=== PATIENT | female | born 1975 | race Caucasian/White ===

== ENCOUNTER 2023-09-13 15:10 | Outpatient (OUT) | payer MEDICAID, SELFPAY ==
--- NOTE | 2023-09-13 15:15 | XR_ITS ---
The [address] [address] Patient Name: SOLOMON CHAPARRO MRN: [id number] date: 1975 Sex: F Assigned Patient Location: RAD Current Patient Location: [facility] Accession/Order Number: [id number] Exam Date: 09/13/2023 15:20 Report Date: 09/13/2023 15:48 At the request of: NATIVIDAD SMITH Procedure: XR chest 2V EXAMINATION: XR chest 2V HISTORY: Pneumonia Due To COVID 19 COMPARISON: 01/15/2022 TECHNIQUE: PA and lateral FINDINGS: LUNGS: No significant pulmonary parenchymal abnormalities. VASCULATURE: No increased pulmonary vasculature. PLEURA: No pneumothorax, effusion, or pleural thickening. CARDIAC: No cardiomegaly or cardiac silhouette abnormality. MEDIASTINUM: No visible mass or adenopathy. BONES: No fracture or visible bone lesion. OTHER: Negative. XR/XR chest 2V IMPRESSION: No acute disease. Electronically authenticated by: SHANA CARROLL Date: 09/13/2023 15:48
== END 2023-09-13 15:11 | disposition home or self-care (01) ==
LOC: RAD 15:11
PROVIDERS: PCP Internal Medicine; Visit Provider Internal Medicine
DX: U07.1 COVID-19 (principal); J12.82 Pneumonia due to coronavirus disease 2019
CPT/HCPCS: 71046

== ENCOUNTER 2024-05-15 13:32 | Outpatient (OUT) | payer MEDICAID, SELFPAY ==
--- OUTSIDE RECORDS SUMMARY | 2024-05-15 13:53 | XMS_ITS | CCD ---
Author Organization [facility] Care Team Providers Care Radiology Physician Name Role Phone CHANELLE GAY Admitting Unavailable CHANELLE GAY Consulting Unavailable CHANELLE GAY Attending Unavailable SARAH, DR HENSON Primary Care Unavailable CHANELLE GAY Admitting Unavailable CHANELLE GAY Consulting Unavailable CHANELLE GAY Attending Unavailable SARAH, DR HENSON Primary Care Unavailable PAULO BELLE Attending Unavailable NADEGE, DR BUI Consulting Unavailable SARAH, DR HENSON Primary Care Unavailable PAULO BELLE Admitting Unavailable Shana Aleman Unavailable Eddie Mccord II Primary Care Provider [phone] Jazmine Pollack Unavailable Eddie Mccord II Primary Care Provider YAZMIN CUELLAR Referring UnavailEDDIE Hemphill II Primary Care Unavailable YAZMIN CUELLAR Attending Unavailab EDDIE Muñoz II Primary Care Unavailable HAO LIGHT Referring Unavailable ELIZABETH OSORIO Attending Unavailable EDDIE MCCORD Attending Unavailable EDDIE MCCORD Attending Unavailable Allergies Allergy Classification Reported Allergen(s) Allergy Type Date of Onset Reaction(s) Facility (1 source) acetaZOLAMIDE Drug Allergy 4 [facility] (1 source) Amoxicillin / Clavulanate Drug Allergy 4 [facility] (2 sources) Codeine; Translations: [CODEINE] Drug Allergy 4 [facility] (1 source) hydrOXYzine Drug Allergy 4 [facility] (1 source) metroNIDAZOLE Drug Allergy 4 [facility] (1 source) Sulfonamides (Antibiotic) Drug allergy (disorder) 4 [facility] (5 sources) Acetaminophen / HYDROcodone; Translations: [HYDROCODONE-ACETA MINOPHEN] Drug Allergy 7 [facility] (5 sources) acetaZOLAMIDE; Translations: [ACETAZOLAMIDE] Drug Allergy 5 Itching [facility] (5 sources) Codeine Drug Allergy 5 Rash, [facility] (6 sources) hydrOXYzine; Translations: [HYDR[facility]YZINE] [facility] metroNIDAZOLE; Translations: [METRONIDAZOLE HCL] Drug Allergy 6 [facility] (5 sources) Sulfonamides (Antibiotic); Translations: [SULFA (SULFONAMIDE ANTIBIOTICS)] Drug Allergy 5 [facility] (1 source) Sulfacetamide / Sulfur Drug Allergy [facility] Other (1 source) Diamox Sequels Drug allergy [facility] Other Medications Current Medications Medication Drug Class(es) Dates Sig (Normalized) Sig (Original) amoxicillin 875 mg / clavulanate 125 mg oral tablet (1 source) Penicillin-class Antibacterial Start: 08-09-2021 take 1 tablet by mouth every twelve hours Amoxicillin-Pot Clavulanate 875-125 MG 1 tablet Orally every 12 hrs for 7 days Aug, Active ASA (1 source) ASA Active dexamethasone 1 mg/ml / tobramycin 3 mg/ml ophthalmic suspension (1 source) Aminoglycoside Antibacterial, Corticosteroid Start: 05-18-2020 take 1 drop(s) into the eye(s) three times daily TobraDex 0.3-0.1 % 1 drop into affected eye Ophthalmic Three times a day for 5 days May, Active 1 ml erenumab-aooe 140 mg/ml auto-injector (1 source) Start: 08-24-2021 End: 08-24-2022 inject 1 mL by subcutaneous injection every month erenumab-aooe (AIMOVIG AUTOINJECTOR) 140 mg/mL auto-injector Indications: Chronic migraine without aura, with intractable migraine, so stated, with status migrainosus , IIH (idiopathic intracranial hypertension) , Medication overuse headache Inject 1 mL subcutaneously once every month. Do not shake. 1 mL 08/24/2021 08/24/2022 Active Comment on above: Inject 1 mL subcutan eously once every month. Do not shake. Vitamin D 1000 UNIT (1 source) Vitamin D 1000 U NIT Orally Active Completed/Discontinued Medications Medication Drug Class(es) Dates Sig (Normalized) Sig (Original) aspirin 325 mg oral tablet (4 sources) Platelet Aggregation Inhibitor, Nonsteroidal Anti-inflammatory Drug take 1 tablet by mouth once daily aspirin 325 mg tablet Take 325 mg by mouth once daily. 0 Active Comment on above: Take 325 mg by mouth once daily. cholecalciferol 0.025 mg oral capsule (4 sources) Vitamin D take 1 capsule by mouth once daily Cholecalciferol, Vitamin D3, 25 mcg (1,000 unit) cap Take 1,000 Units by mouth once daily. 0 Active Comment on above: Take 1,000 Units by mouth once daily. digoxin 0.125 mg oral tablet (5 sources) Cardiac Glycoside Start: 07-26-2015 digoxin (LANOXIN) 125 mcg tablet Digoxin Active ferrous sulfate 325 mg oral tablet (4 sources) take 325 mg by mouth once daily ferrous sulfate (IRON ORAL) Take 325 mg by mouth once daily. 0 Active Comment on above: Take 325 mg by mouth once daily. furosemide 20 mg oral tablet (5 sources) Loop Diuretic Start: 08-09-2015 furosemide (LASIX) 20 mg tablet once daily. 0 08/09/2015 Active Lasix Active Comment on above: once daily. rizatriptan 10 mg oral tablet (5 sources) Serotonin-1b and Serotonin-1d Receptor Agonist Start: 08-24-20 21 End: 02-28-20 22 take 1 tablet by mouth every two hours as needed for headache rizatriptan (MAXALT) 10 mg tablet Indications: Chronic migraine without aura, with intractable migraine, so stated, with status migrainosus , IIH (idiopathic intracranial hypertension) , Medication overuse headache Take 1 tablet by mouth as needed for migraine headache (see administration instructions). AT ONSET OF HEADACHE. MAY REPEAT AFTER 2 HOURS. DO NOT EXCEED 30 MG PER DAY. 12 tablet 2 02/27/2022 Active Comment on above: Take 1 tablet by carla th as needed for migraine headache (see administration instructions). AT ONSET OF HEADACHE. MAY REPEAT AFTER 2 HOURS. DO NOT EXCEED 30 MG PER DAY. topiramate 100 mg oral tablet (5 sources) Start: 09-12-20 16 take 1 tablet by mouth twice daily topiramate (TOPAMAX) 100 mg tablet Take 1 tablet by mouth twice daily. 60 tablet 11 09/12/2016 Active Comment on above: Take 1 tablet by carla twice daily. 24 hr venlafaxine 150 mg extended release oral capsule (5 sources) Serotonin and Norepinephrine Reuptake Inhibitor Start: 12-01-19 16 take 1 capsule by mouth once daily venlafaxine XR (EFFEXOR XR) 150 mg 24 hr capsule Indications: IIH (idiopathic intracranial hypertension) , Chronic daily headache , Chronic migraine without aura, with intractable migraine, so stated, with status migrainosus , Intractable chronic migraine without aura and without status migrainosus , Medication overuse headache , Seizures (HCC) Take 1 capsule by mouth once daily. 30 capsule 11 12/01/2015 Active Effexor XR Activ e Comment on above: Take 1 capsule by mo cox monett once daily. Problems Active Problems Problem Classification Problem Date Documented Da te Episodic/Chronic Headache; including migraine (5 sources) Refractory migraine without aura; Translations: [Chronic migraine without aura, intractable, with status migrainosus] Onset: 12-01-2015 Chronic Headache; including migraine (3 sources) Headache; including migraine; Translations: [HEADACHE UNSPECIFIED] Onset: 01-15-2022 Other aftercare (1 source) Other dedicated intermodal truck driver (current) drug therapy; Translations: [OTH ASSISTED CURRENT DRUG THERAPY] Onset: 01-16-2022 Episodic Other aftercare (1 source) custodial (current) use of aspirin; Translations: [ASSISTED CURRENT USE OF ASPIRIN] Onset: 01-16-2022 Episodic Other nervous system disorders (5 sources) Benign intracranial hypertension; Translations: [Benign intracranial hypertension] Onset: 12-01-2015 Chronic Other nervous system disorders (2 sources) Paresthesia of skin; Translations: [Disturbance of skin sensation] Onset: 10-10-2022 Episodic Other nervous system disorders (1 source) Numbness and tingling sensation of skin; Translations: [Anesthesia of skin] Episodic Other upper respiratory infections (2 sources) Acute sinusitis, unspecified; Translations: [Acute upper respiratory infection, unspecified] Onset: 01-16-2022 Episodic Unclassified (1 source) CONTACT W/AND (SUSP) EXPOS COVID-19; Translations: [CONTACT W/AND (SUSP) EXPOS COVID-19] Onset: 01-16-2022 Past or Other Problems Problem Classification Problem Date Documented Da te Episodic/Chronic E Codes: Natural/environment (1 source) Scratched by cat, initial encounter Onset: 08-09-2021 Resolved: 08-09-2021 Episodic Headache; including migraine (5 sources) Medication overuse headache; Translations: [Drug-induced headache, not elsewhere classified, not intractable] Onset: 12-01-2015 Episodic Immunizations and screening for infectious disease (4 sources) Encounter for immunization; Translations: [ENCOUNTER FOR IMMUNIZATION] Onset: 02-17-2021 Episodic Superficial injury; contusion (1 source) Abrasion, left lower leg, initial encounter Onset: 08-09-2021 Resolved: 08-09-2021 Episodic Results Test Name Value Interpretation Reference Range Facil rovertoevangelina Jennifer 10-11-2022 CNPN Telephone (NEURAV) SOLOMON CHAPARRO ([id number]) 1975 F Date Time Provider Department 10/11/22 YAZMIN CUELLAR During your visit today, we recorded the following information about you: Allergies As of Date: 10/11/2022 Noted Allergy Reaction ATARAX (HYDROXYZINE) 08/13/2015 9 - Itching CODEINE 08/13/2015 2 - Rash DIAMOX (ACETAZOLAMIDE) 08/13/2015 9 - Itching FLAGYL (METRONIDAZOLE HCL) 02/23/2016 4 - Hives HYDROCODONE-ACETAMIN OPHEN 12/18/2016 4 - Hives SULFA (SULFONAMIDE ANTIBIOTICS) 08/13/2015 4 - Hives Date Reviewed: 10/04/2022 Reviewed by: Yazmin Cuellar DO - Fully Assessed Reason for Visit: Results [95] Prescriptions as of 10/11/2022 - rizatriptan (MAXALT) 10 mg tablet Take 1 tablet by mouth as needed for migraine headache (see administration instructions). AT ONSET OF HEADACHE. MAY REPEAT AFTER 2 HOURS. DO NOT EXCEED 30 MG PER DAY. - ferrous sulfate (IRON ORAL) Take 325 mg by mouth once daily. - Cholecalciferol, Vitamin D3, 25 mcg (1,000 unit) cap Take 1,000 Units by mouth once daily. - topiramate (TOPAMAX) 100 mg tablet Take 1 tablet by mouth twice daily. - venlafaxine XR (EFFEXOR XR) 150 mg 24 hr capsule Take 1 capsule by mouth once daily. - aspirin 325 mg tablet Take 325 mg by mouth once daily. - furosemide (LASIX) 20 mg tablet once daily. - digoxin (LANOXIN) 125 mcg tablet Problem List As Of Date 10/11/2022 Noted Resolved IIH (idiopathic intracranial hypertension) [G93*12/01/2015 Chronic daily headache [R51.9] 12/01/2015 Chronic migraine without aura, with intractable*12/01/19 16 Medication overuse headache [G44.40] 12/01/2015 02/23/2016 Encounter Status:Closed by YAZMIN CUELLAR on 10/11/22 [facility] No Panel Informationon 10-10 [facility] CNOVon 10-04-2022 CNOV Office Visit (NEUAV4) SOLOMON CHAPARRO ([id number]) 1975 F Date Time Provider Department 10/04/22 1:00 PM YAZMIN CUELLAR4 During your visit today, we recorded the following information about you: Pulse Blood pressure 102/minute 112/82 Yazmin Cuellar DO 10/04/2022 1:36 PM Signed Patient came in for appointment today but was expecting to have EMG test. In review of the referral received it was strictly for EMG not office referral. She already has a neurosurgeon she is following with who placed the referral. Scheduling had placed her in as a referral instead. After discussion with her will no charge for today's visit. I walked her up to and discussed with scheduling who are setting up for the EMG. DO Yazmin Lomas DO 10/04/2022 1:38 PM Signed Addended by: YAZMIN CUELLAR on: 10/04/2022 01:38 PM Modules accepted: Orders Referring Provider: HAO LIGHT [[id number]] Allergies As of Date: 10/04/2022 Noted Allergy Reaction ATARAX (HYDROXYZINE) 08/13/2015 9 - Itching CODEINE 08/13/2015 2 - Rash DIAMOX (ACETAZOLAMIDE) 08/13/2015 9 - Itching FLAGYL (METRONIDAZOLE HCL) 02/23/2016 4 - Hives HYDROCODONE-ACETAMIN OPHEN 12/18/2016 4 - Hives SULFA (SULFONAMIDE ANTIBIOTICS) 08/13/2015 4 - Hives Date Reviewed: 10/04/2022 Reviewed by: Yazmin Cuellar DO - Fully Assessed Reason for Visit: New Patient [172] Primary Visit Diagnosis:Paresthesi a of both hands [R20.2] Order(s):EMG(NEURO/N I) [[id number]] Order #: [id number]: 1 FUTURE Prescriptions as of 10/04/2022 - rizatriptan (MAXALT) 10 mg tablet Take 1 tablet by mouth as needed for migraine headache (see administration instructions). AT ONSET OF HEADACHE. MAY REPEAT AFTER 2 HOURS. DO NOT EXCEED 30 MG PER DAY. - ferrous sulfate (IRON ORAL) Take 325 mg by mouth once daily. - Cholecalciferol, Vitamin D3, 25 mcg (1,000 unit) cap Take 1,000 Units by mouth once daily. - topiramate (TOPAMAX) 100 mg tablet Take 1 tablet by mouth twice daily. - venlafaxine XR (EFFEXOR XR) 150 mg 24 hr capsule Take 1 capsule by mouth once daily. - aspirin 325 mg tablet Take 325 mg by mouth once daily. - furosemide (LASIX) 20 mg tablet once daily. - digoxin (LANOXIN) 125 mcg tablet Problem List As Of Date 10/04/2022 Noted Resolved IIH (idiopathic intracranial hypertension) [G93*12/01/2015 Chronic daily headache [R51.9] 12/01/2015 Chronic migraine without aura, with intractable*02/24/20 16 Medication overuse headache [G44.40] 12/01/2015 02/23/2016 Encounter Status:Closed by YAZMIN CUELLAR on 10/04/22 Normal [facility] CBC AUTO DIFFon 01-15-2022 BASO # 0.1 103/ul Normal 0.0-0.1 [facility] Comment on above: Performed By: #### C BC #### [facility] [address] [address] [address] Karen Pickering Basophils/100 WBC (Bld) 1.2 % Normal 0.2-2.0 [facility] Comment on above: Performed By: #### C BC #### [facility] [address] [place] [address] Dr. Karen Pickering EO # 0.4 103/ul Normal 0.0-0.7 [facility] Comment on above: Performed By: #### C BC #### [facility] [address] [address] [address] Karen Pickering Eosinophils/100 WBC (Bld) 7.1 % Critically high 0.9-7.0 [facility] Comment on above: Performed By: #### C BC #### [facility] [address] [place] [address] Dr. Karen Pickering Erythrocyte distribution width (RBC) [Ratio] 13.6 % Normal 11.0-15.0 [facility] Comment on above: Performed By: #### C BC #### [facility] [address] [place] [address] Dr. Karen Pickering Hematocrit (Bld) [Volume fraction] 45.5 % Normal 36.0-48.0 [facility] Comment on above: Performed By: #### C BC #### [facility] [address] [place] [address] Dr. Karen Pickering Hemoglobin (Bld) [Mass/Vol] 14.5 g/dL Normal 12.0-16.0 [facility] Comment on above: Performed By: #### C BC #### [facility] [address] [place] [address] Dr. Karen Pickering IG # 0.03 10e3/ul Normal 0.00-0.03 [facility] Comment on above: Performed By: #### C BC #### [facility] [address] [place] [address] Dr. Karen Pickering IG % 0.5 % Normal 0.0-0.5 [facility] Comment on above: Performed By: #### C BC #### [facility] [address] [place] [address] Dr. Karen Pickering LYMPH # 3.2 103/ul Normal 1.2-3.8 [facility] Comment on above: Performed By: #### C BC #### [facility] [address] [place] [address] Dr. Karen Pickering Lymphocytes/100 WBC (Bld) 55.6 % Normal 20.5-60.0 [facility] Comment on above: Performed By: #### C BC #### [facility] [address] [place] [address] Dr. Karen Pickering MANUAL DIFF REQ NO Normal [facility] Comment on above: Performed By: #### C BC #### [facility] [address] [place] [address] Dr. Karen Pickering MCH (RBC) [Entitic mass] 29.4 pg Normal 26.7-34.0 [facility] Comment on above: Performed By: #### C BC #### [facility] [address] [place] [address] Dr. Karen Pickering MCHC (RBC) [Mass/Vol] 31.9 g/dL Normal 29.9-35.2 [facility] Comment on above: Performed By: #### C BC #### [facility] [address] [place] [address] Dr. Karen Pickering MCV (RBC) [Entitic vol] 92.1 fL Normal 81.0-99.0 [facility] Comment on above: Performed By: #### C BC #### [facility] [address] [place] [address] Dr. Karen Pickering MONO # 0.6 103/ul Normal 0.3-0.8 [facility] Comment on above: Performed By: #### C BC #### [facility] [address] [place] [address] Dr. Karen Pickering Monocytes/100 WBC (Bld) 10.9 % Normal 1.7-12.0 [facility] Comment on above: Performed By: #### C BC #### [facility] [address] [place] [address] Dr. Karen Pickering NEUT # 1.4 103/ul Normal 1.4-6.5 [facility] Comment on above: Performed By: #### C BC #### [facility] [address] [place] [address] Dr. Karen Pickering Neutrophils/100 WBC (Bld) 24.7 % Critically low 43.0-75.0 [facility] Comment on above: Performed By: #### C BC #### [facility] [address] [place] [address] Dr. Karen Pickering Platelet mean volume (Bld) [Entitic vol] 10.5 fL Normal 9.5-13.5 [facility] Comment on above: Performed By: #### C BC #### [facility] [address] [place] [address] Dr. Karen Pickering PLT 291 103/ul Normal 150-450 [facility] Comment on above: Performed By: #### C BC #### [facility] [address] [place] [address] Dr. Karen Pickering RBC 4.94 106/ul Normal 4.20-5.40 [facility] Comment on above: Performed By: #### C BC #### [facility] [address] [place] [address] Dr. Karen Pickering WBC 5.8 103/ul Normal 4.0-11.0 [facility] Comment on above: Performed By: #### C BC #### [facility] [address] [place] [address] Dr. Karen Pickering [facility] SARS-CoV-2 (COVID-19) RNA CINDY+probe Ql (Unsp spec) Not detected Normal NOT DETECTED [facility] Comment on above: Result Comment: When diagnostic testing is negative, the possibility of a false negative should be considered in the context of a patient's recent exposures and the presence of clinical signs and symptoms consistent with SARS-CoV-2. This test is not yet approved or cleared by the [place] FDA. When there are no FDA-approved or cleared tests available, and other criteria are met, FDA can make tests available under an emergency access mechanism called an Emergency Use Authorization (EUA). The EUA for this test is supported by the Fusing [employer] Feeder of Health and Human Service's declaration that circumstances exist to justify the emergency use of in vitro diagnostics for the detection and/or diagnosis of the virus that causes COVID-19. This EUA will remain in effect for the duration of the COVID-19 declaration justifying emergency of IVDs, unless it is terminated or revoked by the FDA (after which the test may no longer be used). Performed By: #### C VDTBH #### [facility] [address] [place] [address] Dr. Karen Pickering D-DIMERon 01-15-2022 D-DIMER 0.20 mg/L FEU Normal 0.19-0.50 [facility] Comment on above: Performed By: #### D DIM #### [facility] [address] [place] [address] Dr. Karen Pickering D-DIMER COMMENTS SEE BELOW Normal [facility] Comment on above: Result Comment: Incr eases in D-Dimer concentration observed with thromboembolic events can be variable due to localization, size, and age of the thrombus. Therefore, a thromboembolic event cannot be diagnosed with certainty on the basis of the reference range. D-Dimers may also be elevated for a variety of disorders including: advanced age, , coronary disease, cancer, liver disease, infection, inflammation, hematoma, DIC, trauma, post-surgery, diabetes, thrombolytic or anticoagulant therapy, stress, and generalized hospitalization. Performed By: #### D DIM #### [facility] [address] [place] [address] Dr. Karen Pickering GROUP A STREP CULTUREon 01-06 S. pyogenes Ag Ql (Unsp spec) Culture Observations: Negative for Group A Streptococcus Normal [facility] Comment on above: Performed By: #### G RASTCX, SSCRN #### [facility] [address] [place] [address] Dr. Karen Pickering INFLUENZA A AND B AGon 01-15 INFLUENZA A AG Negative Normal NEGATIVE SEE COMMENT [facility] Comment on above: Performed By: #### I NFLUAB #### [facility] [address] [address] [address] Karen Pickering INFLUENZA B AG Negative Normal NEGATIVE SEE COMMENT [facility] Comment on above: Performed By: #### I NFLUAB #### [facility] [address] [place] [address] Dr. Karen Pickering INTERNAL CONTROLS Within Normal Limits Normal Wi thin Normal Limits [facility] Comment on above: Performed By: #### I NFLUAB #### [facility] [address] [place] [address] Dr. Karen Pickering PROF CHEM 8 (BAS METB)on Anion gap [Moles/Vol] 16.0 mmol/L Normal [facility] Comment on above: Performed By: #### B MP #### [facility] [address] [place] [address] Dr. Karen Pickering Calcium [Mass/Vol] 8.9 mg/dL Normal 8.5-10.1 [facility] Comment on above: Performed By: #### B MP #### [facility] [address] [place] [address] Dr. Karen Pickering Chloride [Moles/Vol] 105 mmol/L Normal 98-107 [facility] Comment on above: Performed By: #### B MP #### [facility] [address] [place] [address] Dr. Karen Pickering CO2 [Moles/Vol] 22.8 mmol/L Normal 22.0-30.0 [facility] Comment on above: Performed By: #### B MP #### [facility] [address] [place] [address] Dr. Karen Pickering Creatinine [Mass/Vol] 1.19 mg/dL Critically high 0.52-1.04 [facility] Comment on above: Performed By: #### B MP #### [facility] [address] [address] [address] Karen Pickering EGFR-AF BELGIAN 59 mL/min/1.73m2 Critically low >=60 [facility] Comment on above: Performed By: #### B MP #### [facility] [address] [address] [address] Karen Pickering EGFR-NON AF BELGIAN 48 mL/min/1.73m2 Critically low >=60 [facility] Comment on above: Performed By: #### B MP #### [facility] [address] [address] [address] Karen Pickering Glucose [Mass/Vol] 122 mg/dL Critically high 74-[address] [facility] Comment on above: Performed By: #### B MP #### [facility] [address] [address] [address] Karen Pickering Potassium [Moles/Vol] 3.8 mmol/L Normal 3.4-5.0 [facility] Comment on above: Performed By: #### B MP #### [facility] [address] [address] [address] Karen Pickering Sodium [Moles/Vol] 140 mmol/L Normal 137-145 [facility] Comment on above: Performed By: #### B MP #### [facility] [address] [address] [address] Karen Pickering Urea nitrogen [Mass/Vol] 18.0 mg/dL Normal 7.0-18.0 [facility] Comment on above: Performed By: #### B MP #### [facility] [address] [address] [address] Karen Pickering Urea nitrogen/Creatinine [Mass ratio] 15.1 mg/mg Normal [facility] Comment on above: Performed By: #### B MP #### [facility] [address] [address] [address] Karen Pickering STREPT SCREENon 01-15-2022 STREP SCREEN A Negative Normal NEGATIVE [facility] Comment on above: Performed By: #### G RASTCX, SSCRN #### [facility] [address] [address] [address] Karen Pickering XR CHEST 1 Von 01-15-2022 XR CHEST 1 V EXAMINATION: XR CHEST 1 V HISTORY: Cough COMPARISON: None. TECHNIQUE: Portable chest FINDINGS: The lung parenchyma is free of consolidation or infiltrate. No pneumothorax or pleural effusion. The cardiac, mediastinal and hilar contours are normal. The visualized osseous structures exhibit no gross abnormality. IMPRESSION: Normal chest x-ray Electronically authenticated by: SHANA ALEMAN Date: 2022-01-15 17:06 Normal [facility] Vital Signs Date Time Vital Sign Value Performing Clinician Jany mota 10-04-2022 13:03-0500 Diastolic blood pressure 82 mm[Hg] Yazmin [employer] Work Phone: [facility] 10-04-2022 13:03-0500 Heart rate 102 /min [facility] [employer] Work Phone: [facility] 10-04-2022 13:03-0500 Systolic blood pressure 112 mm[Hg] Yazmin [employer] Work Phone: [facility] 08-09-2021 17:05-0400 Body height 175.26 cm Jazmine Craigault Other [employer] Other 08-09-2021 17:05-0400 Body mass index (BMI) [Ratio] 38.83 kg/m2 Jazmine Jaki Other [employer] Other 08-09-2021 17:05-0400 Body temperature 98.3 [degF] Jazmine Pollack Other [employer] Other 08-09-2021 17:05-0400 Body weight 119.3 kg Jazmine Pollack Other [employer] Other 08-09-2021 17:05-0400 Diastolic blood pressure 65 mm[Hg] Jazmine Pollack Other [employer] Other 08-09-2021 17:05-0400 Respiratory rate 18 /min Jazmine Pollack Other [employer] Other 08-09-2021 17:05-0400 SaO2% (BldA) [Mass fraction] 99 % Jazmine Pollack Other [employer] Other 08-09-2021 17:05-0400 Systolic blood pressure 112 mm[Hg] Jazmine Pollack Other [employer] Other Encounters Encounter Date Encounter Type Care Provider Facility Start: 05-06-2024 End: 05-06-2024 ambulatory ELIZABETH OSORIO Not Available Start: 09-19-2023 End: 09-19-2023 ambulatory EDDIE MCCORD Not Available Start: 09-13-2023 End: 09-13-2023 ambulatory EDDIE Fraga MCCORD Not Available Start: 10-11-2022 Telephone encounter Nikolas Cuellar DO Work Phone: Neurology Comment on above: Results Start: 10-10-2022 End: 10-10-2022 ambulatory YAZMIN CUELLAR Facility:[facility] Start: 10-10-2022 End: 10-10-2022 ambulatory Emg Weight:400) Work Phone: Neurology Comment on above: EMG Start: 10-10-2022 End: 10-10-2022 Patient encounter procedure Emg 2 Neur [place] (Max Weight:400) Work Phone: [place] Start: 10-04-2022 End: 10-04-2022 ambulatory YAZMIN CUELLAR Facility:[facility] Start: 10-04-2022 End: 10-04-2022 Patient encounter procedure Yazmin Cuellar DO Work Phone: Neurology Comment on above: Paresthesia of both hands (Primary Dx) Start: 02-27-2022 Refill Howard Chi Work Phone: Neurology Comment on above: Refill Request Start: 01-15-2022 End: 01-15-2022 ambulatory PAULO BELLE Facility:[facility] Start: 08-09-2021 End: 08-09-2021 ambulatory Jazmine Craigault Other [employer] Other Start: 08-09-2021 Office outpatient visit 15 minutes Jazmine Pollack [facility] Start: 02-17-2021 End: 02-18-2021 ambulatory CHANELLE GAY Facility:[facility] Start: 01-27-2021 End: 01-28-2021 ambulatory CHANELLE GAY Facility:[facility] Procedures Date Procedure Procedure Detail Performing Clinician Start: 10-10-2022 Nerve conduction flaquito dies 5-6 studies Yazmin Cuellar DO Work Phone: Start: 08-21-2021 Adult depression screening assessment Howard Tidwell DO Work Phone: Plan of Treatment Date Care Activity Detail Author Start: 10-08-2022 DEPRESSION ASSESSMENT DEPRESSION ASS ESSMENT [facility] Start: 08-21-2022 Adult depression scr eening assessment DEPRESSION SCREENING [facility] Start: 06-08-2022 Influenza vaccination INFLUENZA (Sea son Ended) [facility] Start: 2018 COLOGUARD (FIT-DNA) COLOGUARD (FIT-D NA) [facility] Start: 2018 Colonoscopy COLONOSCOPY [facility] Start: 2018 COLORECTAL CANCER SCREENING COLORECTAL CANCER SCREENING [facility] Start: [address] COLONOGRAPHY [facility] Start: 2018 DIABETES SCREEN DIABETES SCREEN [facility] Start: 2018 FECAL OCCULT BLOOD FECAL OCCULT BLOO D [facility] Start: 2018 LIPID SCREEN LIPID SCREEN [facility] Start: 2018 SIGMOIDOSCOPY SIGMOIDOSCOPY [facility] Start: 2013 Mammography MAMMOGRAM [facility] Start: 2003 HPV TESTING HPV TESTING [facility] Start: 1994 PAP TESTING PAP TESTING [facility] Start: 1992 Urine microalbumin profile DTAP,TDAP ,TD (1 - Tdap) [facility] Start: 1991 HEPATITIS C SCREENING HEPATITIS C RAF RAMSEY [facility] Start: 1991 HIV SCREENING HIV SCREENING [facility] Start: 1978 COVID-19 VACCINE (#1) COVID-19 VACCI NE (#1) [facility] Start: 1973 HEPATITIS B (1 of 3 - 3-dose series) HEPATITIS B (1 of 3 - 3-dose series) [facility] Immunizations Immunization Date Immunization Notes Care Provider Fa cility 08-09-2021 tetanus and diphther ia toxoids, adsorbed, preservative free, for adult use (5 Lf of tetanus toxoid and 2 Lf of diphtheria toxoid) Jazmine Pollack Other [employer] Other Payers Date Payer Category Payer Medicaid [place] [id number] 2022-Present [phone] [address] [place] [address] Medicaid [id number] 2022 Medicaid [id number] 2019 Private Health Insurance HOMER DONNELLY OAP [id number] 2019-Present [phone] [address] [place] [address] Open Access [id number] 2019 Private Health Insurance [id number] 1973 Unknown [id number] 1973 Unknown [id number] 1973 Unknown [id number] 1973 Unknown [id number] 1973 Unknown [id number] 1973 Unknown [id number] 1959 Private Health Insurance [id number] Social History Date Type Detail Facility Start: 08-13-2015 End: 10-04-2022 Tobacco smoking status NHIS Never smoked tobacco [facility] Start: 08-13-2015 End: 10-04-2022 Tobacco use and exposure Smokeless tobacco non-user [facility] Start: 08-24-2021 End: 10-04-2022 Alcohol intake Current non-drinker of alcohol (finding) [facility] Start: 1975 Sex Assigned At Female [facility] Sex Assigned At Sex Assigned At [facility] [employer] Other Clinical Notes 12-01-2015 to 10-10-2022 Tru Charles MD - 10/10/2022 2:26 PM ESTAddendum Note - Yazmin Cuellar, DO - 10/04/2022 1:38 PM ESTChsara Cuellar, DO - 10/04/2022 12:53 PM EST Note Date & Type Note Facility 10-10-2022 Note HNO ID: [id number] Author: Tru Charles MD Service: ? Author Type: Physician Type: Progress Notes Filed: 10/10/2022 5:38 PM Note Text: UNIVERSAL PROTOCOL / SAFETY CHECKLIST Procedure to be Performed: EMG Sign In: A Moment of CARE was completed. Personnel directly involved with the procedure wore the appropriate PPE (Personal Protective Equipment). Patient/Surrogate Stated/Verified: PATIENT VERIFIED(optional for EMERGENT procedures): Patient name, Date of , Relevant allergies, and The intended procedure Time Out Communication: Intended patient and procedure match the source documents. Correct side/site marked and visible. Sign Out: SIGN OUT (optional for EMERGENT procedures): Post-procedure follow-up management communicated and Plan of Care Visit completed when applicable. Marlene Mancia MD (sign out) [facility] 10-10-2022 History of Presen t illness Narrative UNIVERSAL PROTOCOL / SAFETY CHECKLIST Procedure to be Performed: EMG Sign In: A Moment of CARE was completed. Personnel directly involved with the procedure wore the appropriate PPE (Personal Protective Equipment). Patient/Surrogate Stated/Verified: PATIENT VERIFIED(optional for EMERGENT procedures): Patient name, Date of , Relevant allergies, and The intended procedure Time Out Communication: Intended patient and procedure match the source documents. Correct side/site marked and visible. Sign Out: SIGN OUT (optional for EMERGENT procedures): Post-procedure follow-up management communicated and Plan of Care Visit completed when applicable. Marlene Mancia MD (sign out) documented in this encounter [facility] 10-04-2022 Note HNO ID: [id number] Author: Yazmin Cuellar DO Service: ? Author Type: Physician Type: Progress Notes Filed: 10/04/2022 1:36 PM Note Text: Patient came in for appointment today but was expecting to have EMG test. In review of the referral received it was strictly for EMG not office referral. She already has a neurosurgeon she is following with who placed the referral. Scheduling had placed her in as a referral instead. After discussion with her will no charge for today's visit. I walked her up to and discussed with scheduling who are setting up for the EMG. Yazmin Cuellar DO [facility] 10-04-2022 Miscellaneous Notes Addended by: YAZMIN CUELLAR on: 10/04/2022 01:38 PM Modules accepted: Orders documented in this encounter [facility] 10-04-2022 History of Presen t illness Narrative Patient came in for appointment today but was expecting to have EMG test. In review of the referral received it was strictly for EMG not office referral. She already has a neurosurgeon she is following with who placed the referral. Scheduling had placed her in as a referral instead. After discussion with her will no charge for today's visit. I walked her up to and discussed with scheduling who are setting up for the EMG. Yazmin Cuellar DO documented in this encounter [facility] 02-27-2022 Miscellaneous Notes Physician: Diann Fax from pharmacy requesting refill. Please E-Scribe Last OV: 08/24/21 with Diann Future OV: not scheduled Pending Prescriptions Disp Refills RIZATRIPTAN 10 MG TABLET 12 tablet 2 Sig: Take 1 tablet by mouth as needed for migraine headache (see administration instructions). AT ONSET OF HEADACHE. MAY REPEAT AFTER 2 HOURS. DO NOT EXCEED 30 MG PER DAY. MARTIN: No [facility] documented in this encounter [facility] 08-09-2021 Evaluation note Encounter Date Diagnosis Assessment Notes Aug, Abrasion, left lower leg, initial encounter (ICD-10 - S80.812A) Aug, Scratched by cat, initial encounter (ICD-10 - W55.03XA) May use warm compresses daily to clean area and use gentle cleanser to clean area. Do not recommend any harsh soaps. Use medication as directed. Contact office or follow up with your primary care provider if symptoms of infection occur such as increased pain or tenderness, redness or swelling, or drainage of area. Tdap updated in office today [employer] Other 02-24-2016 History of Past illness Narrative* Problem Noted Date Resolved Date Medication overuse headache 12/01/201502/05 documented as of this encounter (statuses as of 02/27/2022) [facility] History of Past illness Narrative* Problem Noted Date Resolved Date Medication overuse headache 12/01/201502/05 documented as of this encounter (statuses as of 10/10/2022) [facility] History of Past illness Narrative* Problem Noted Date Resolved Date Medication overuse headache 12/01/201502/05 documented as of this encounter (statuses as of 10/12/2022) [facility] History of Past illness Narrative* Problem Noted Date Resolved Date Medication overuse headache 12/01/201502/05 documented as of this encounter (statuses as of 10/12/2022) [facility] Diagnosis Chronic migraine without aura, with intractable migraine, so stated, with status migrainosus IIH (idiopathic intracranial hypertension) Benign intracranial hypertension Medication overuse headache Drug induced headache, not elsewhere classified [facility] Diagnosis Paresthesia of both hands- Primary [facility] Diagnosis Numbness and tingling- Primary Disturbance of skin sensation documented in this encounter [facility] general Narrative - Reported* Type Description Date Medical History Migraine NOS/not intrcbl Medical History Pseudotumor cerebri Surgical History tonsillectomy and adenoidectomy Surgical History cholecystectomy Surgical History acid reflux surgery Hospitalization History see above [employer] Other Reason for referral (narrative)* Outpatient Procedure (Routine) - Closed Specialty Diagnoses / Procedures Referred By Contact Referred To Contact [facility] Diagnoses Paresthesia of both hands Procedures EMG(NEURO/NI) NERVE CONDUCTION STUDIES 9-[place] [address] [place] [address] [facility] [address] [place] [id number] Referral ID Status Reason Start Date Expiration Date V isits Requested Visits Authorized [id number] Closed Auto-Generate d Referral 10/04/2022 10/04/2023 1 1 [facility] Summary Purpose Family History No Family History Records FoundNo Family History Records FoundNo Family History Records Found Advance Directives No Advanced Directives Records FoundNo Advanced Directives Records FoundNo Advanced Directives Records Found Additional Source Comments INFORMATION SOURCE (unrecogn ized section and content) DATE CREATED AUTHOR 01/19/2022 [facility] DATE CREATED AUTHOR AUTHOR'S ORGANIZ ATION 10/11/2022 [facility] DATE CREATED AUTHOR AUTHOR'S ORGANIZ ATION 05/08/2024 [facility] EPIC Source Comments (unrecognize d section and content) In the event this informatio n is protected by the Federal Confidentiality of Alcohol and Drug Abuse Patient Records regulations: The Federal rules restrict any use of the information to criminally investigate or prosecute any alcohol or drug abuse patient.[facility] the event this information is protected by the Federal Confidentiality of Alcohol and Drug Abuse Patient Records regulations: The Federal rules restrict any use of the information to criminally investigate or prosecute any alcohol or drug abuse patient.[facility] the event this information is protected by the Federal Confidentiality of Alcohol and Drug Abuse Patient Records regulations: The Federal rules restrict any use of the information to criminally investigate or prosecute any alcohol or drug abuse patient.[facility] the event this information is protected by the Federal Confidentiality of Alcohol and Drug Abuse Patient Records regulations: The Federal rules restrict any use of the information to criminally investigate or prosecute any alcohol or drug abuse patient.[facility] Reason for Visit (unrecogniz ed section and content) Reason Onset Date Comments Refill Request 02/27/2022 Reason Comments New Patient Reason Onset Date Comments EMG 10/10/2022 Specialty Diagnoses / Procedures Referred By Contact Referred To Contact [facility] Diagnoses Paresthesia of both hands Procedures EMG(NEURO/NI) NERVE CONDUCTION STUDIES 9-[place] [address] [place] [address] [facility] [address] [place] [address] Referral ID Status Reason Start Date Expiration Date V isits Requested Visits Authorized [id number] Closed Auto-Generate d Referral 10/04/2022 10/04/2023 1 1 Reason Comments Results Care Teams (unrecognized sec tion and content) Radiology Physician Relationship Specialty Start Date End Date Eddie Mccord II [address] [facility] [address] [place] [address] PCP - General Internal Medicine 03/31/16 Radiology Physician Relationship Specialty Start Date End Date Eddie Mccord II [address] [place] [address] PCP - General Internal Medicine 03/31/16 Radiology Physician Relationship Specialty Start Date End Date Eddie Mccord II [address] [place] [address] PCP - General Internal Medicine 03/31/16 Radiology Physician Relationship Specialty Start Date End Date Eddie Mccord II [address] [place] [address] PCP - General Internal Medicine 03/31/16 FOR RECORDS PERTAINING TO PATIENTS WHO ARE OR HAVE BEEN ENROLLED IN A CHEMICAL DEPENDENCY/SUBSTANCEABUSE PROGRAM, SOME INFORMATION MAY BE OMITTED. This clinical summary was aggregated from multiple sources. Caution should be exercised in using it in the provision of clinical care. This summary normalizes information from multiple sources, and as a consequence, information in this document may materially change the coding, format and clinical context of patient data. In addition, data may be omitted in some cases. CLINICAL DECISIONS SHOULD BE BASED ON THE PRIMARY CLINICAL RECORDS. [employer] [facility]. provides no warranty or guarantee of the accuracy or completeness of information in this document.
--- NOTE | 2024-05-15 14:00 | MM_ITS ---
Patient Name: SOLOMON CHAPARRO MR#: [id number] : 1975 Exam Date: 05/15/2024 Ordering Doctor: DR NATIVIDAD SMITH M.D. RADIOLOGY REPORT PROCEDURE: MM TOMOSYNTHESIS SCREENING BI COMPARISON: MG MAMM SCREEN JIA W CAD, 04/08/2019. MG MAMM SCREEN JIA W CAD, 07/16/2020. INDICATIONS: Screening Calculator Name NCI Breast Cancer Risk Assessment Tool 5 Year Breast Cancer Risk 1.60% Lifetime Breast Cancer Risk 14.50% Personal Breast Cancer No Personal Ovarian Cancer No Treatments None Family Cancers Cousin-maternal with breast cancer at age 40; Cousin-maternal with breast cancer at age ~40; Cousin-maternal with breast cancer at age ~42; Aunt-maternal with breast cancer at age 40; Aunt-maternal with breast cancer at age 45; Cousin-maternal with ovarian cancer at age 18. LOCATION: [facility] BREAST COMPOSITION: The breasts are almost entirely fatty. FINDINGS: DIAGNOSTIC CATEGORY 1--NEGATIVE. NO CHANGE FROM COMPARISON ASSESSMENT. Scattered benign-appearing calcifications are present. RIGHT BREAST: No significant suspicious finding. LEFT BREAST: No significant suspicious finding. Stable focal asymmetry upper outer quadrant, anterior RECOMMENDATIONS: ROUTINE MAMMOGRAM AND CLINICAL EVALUATION IN 12 MONTHS. PLEASE NOTE: A NORMAL MAMMOGRAM DOES NOT EXCLUDE THE POSSIBILITY OF BREAST CANCER. A CLINICALLY SUSPICIOUS PALPABLE LUMP SHOULD BE BIOPSIED. Dictated by: Juice Hill MD on 05/15/2024 at 15:40 Approved by: Juice Hill MD on 05/15/2024 at 15:42
== END 2024-05-15 13:33 | disposition home or self-care (01) ==
LOC: MAMMO 13:32
PROVIDERS: PCP Internal Medicine; Visit Provider Internal Medicine
DX: Z12.31 Encounter for screening mammogram for malignant neoplasm of breast (principal); Z80.3 Family history of malignant neoplasm of breast; Z80.41 Family history of malignant neoplasm of ovary
CPT/HCPCS: 77063; 77067

== ENCOUNTER 2025-02-19 12:46 | Outpatient (OUT) | payer OTHER, SELFPAY ==
[2025-02-19 13:09] LABS: Hemoglobin 13.8 g/dL (12.0-16.0)
--- NOTE | 2025-02-19 13:48 | XR_ITS ---
[id number] Patient Name: SOLOMON CHAPARRO MRN: [id number] date: 1975 Sex: F Assigned Patient Location: CARD Current Patient Location: CARD Accession/Order Number: [id number] Exam Date: 02/19/2025 15:23 Report Date: 02/19/2025 15:24 At the request of: ELIZABETH OSORIO Procedure: XR chest 2V XR chest 2V 02/19/2025 1:58 PM SIGNS AND SYMPTOMS: ^Persistent Cough For 3 Weeks PROTOCOL: Frontal and lateral graphs of the chest COMPARISON: 09/13/2023 FINDINGS: The trachea is midline. The heart and mediastinal structures are within normal limits. The lung parenchyma is clear. The bony thorax is intact. XR/XR chest 2V IMPRESSION: No acute cardiopulmonary pathology. Impression dictated by: Etienne Valenzuela M.D. 02/19/2025 3:24 PM Dictation Location: [employer] Electronically authenticated by: [id number] Y Date: 02/19/2025 15:24
--- NOTE | 2025-02-19 13:51 | RT_ITS ---
[facility] Test Date: 2025-02-19 Pat Name: SOLOMON CHAPARRO Department: Room: - Gender: Female Core Java Engineer: Ashlee Toro RRT : 1975 Requested By: [id number] Order Number: [id number] Reading MD: Denton Steinberg Interpretive Statements Pulmonary function testing was completed according to ATS criteria. Findings were considered accurate and reproducible, with exception of DLCO which did not meet ATS standards. Both pre- and post-bronchodilator values utilized for spirometry. Spirometry: -FEV1/FVC: Normal @ 85% -FEV1: Normal @ 127% -FVC: Normal @ 117% Lung volumes by plethysmography: -RV: Normal @ 102% -TLC: Normal @ 114% Diffusion capacity: -DLCO: Normal @ 122% when corrected for Hb 13.8/dL Flow-volume loop: -Normal/supranormal shape Impressions: -Normal PFT. If asthma remains in the differential, may consider methacholine challenge testing. Clinical correlation required. Electronically Signed On 02-19-2025 14:47:15 EDT by Denton Steinberg
== END 2025-02-19 12:47 | disposition home or self-care (01) ==
LOC: CARD 12:49
PROVIDERS: PCP Internal Medicine; Visit Provider Physician Assistant
DX: J45.40 Moderate persistent asthma, uncomplicated (principal); R05.3 Chronic cough
CPT/HCPCS: 36415; 71046; 85018; 94010; 94726; 94729